=== PATIENT | female | born 1940 | race Caucasian/White ===

== ENCOUNTER 2020-06-24 19:15 | Emergency (ER) | payer MEDICARE, OTHER ==
[2020-06-24 19:57] LABS: #Basophils 0.1 10x3/uL (0.0-0.2); #Eosinphils 0.2 10x3/uL (0.0-0.5); #Monocytes 0.4 10x3/uL (0.0-1.1); #Neutrophils 8.7 10x3/uL (1.5-8.4); %Basophils 0.5 % (0.0-2.0); %Eosinophils 1.4 % (0.0-6.0); %Lymphocytes 13.6 % (18.0-47.0); %Monocytes 3.5 % (0.0-10.0); Hemoglobin 12.7 g/dL (12.0-15.5); Mean Corpuscular HGB CONC 31.5 g/dL (32.0-36.0); Mean Corpuscular Hemoglobin 33.6 pg (27.0-33.0); Mean Corpuscular Volume 106.6 fl (81.6-98.3); Mean Platelet Volume 9.7 fl (7.4-10.4); Platelet Count 162 10x3/uL (150-450); RBC Distribution Width 13.9 % (11.5-14.5); Red Blood Cell (RBC) Count 3.78 10x6/uL (3.90-5.03); White Blood Cell (WBC) Count 10.8 10x3/uL (3.5-10.5)
[2020-06-24] MEDS ORDERED: Fentanyl 100 MCG/2 ML VIAL ONE ×4 (20:00→23:35)
[2020-06-24 20:17] LABS: ALT (SGPT) 39 U/L (8-55); AST (SGOT) 57 U/L (5-34); Albumin 3.9 g/dL (3.4-4.8); Alkaline Phosphatase 118 U/L (40-110); Anion Gap 15 mmol/L (10-20); BUN (Urea Nitrogen) 13 mg/dL (9.8-20.1); Bilirubin, Total 0.7 mg/dL (0.2-1.2); CK (CPK) 140 U/L (29-168); Calc. Creatinine Clearance 0 mL/min (70-130); Calcium 8.2 mg/dL (7.8-10.44); Carbon Dioxide 21 mmol/L (23-31); Chloride 107 mmol/L (98-107); Globulin 2.4 g/dL (2.4-3.5); Glucose 246 mg/dL (83-110); Magnesium 2.6 mg/dL (1.6-2.6); Potassium 3.7 mmol/L (3.5-5.1); Protein, Total 6.3 g/dL (5.8-8.1); Sodium 139 mmol/L (136-145)
[2020-06-24 20:24] LABS: D-Dimer Test 5.89 mg/L FEU (0.19-0.50); PTT 26.1 sec (22.0-33.0); Prothrombin Time 10.8 sec (9.5-12.1)
[2020-06-24 20:34] LABS: SARS-CoV-2 NAA Rapid Test Not Detected (NotDetected)
[2020-06-24 20:34] LABS: Actual Bicarbonate (HCO3a) 21.2 mEq/L (22-28); Base Excess (BEa) -6.8 mEq/L (-2.0 to +3.0); CO2 Tension 53.2 mmHg (35.0-45.0); Calcium, Ionized (arterial) 1.17 mmol/L (1.12-1.30); Carboxyhemoglobin (COHb) 0.5 gm% (0.0-3.0); Hemoglobin (Hb) 13.3 g/dL (12.0-16.0); O2 Tension (PaO2), arterial 278.4 mmHg (> 70.0); Potassium - ABG Lab 3.6 mmol/L (3.70-5.30); Puncture Site RBA; pH, Arterial 7.22 (7.35-7.45)
[2020-06-24 20:35] LABS: CKMB 1.5 ng/mL (0-6.6)
[2020-06-24 20:52] LABS: Macrocytosis SLIGHT = 6-15 cells (100X) (0-5/hpf)
[2020-06-24 20:57] LABS: Platelet Morphology Comment Appears Adequate
[2020-06-24 21:24] LABS: Bilirubin Neg (Negative); Blood, Urine 25 (Negative); Clarity Clear (Clear); Glucose, Urine (Dipstick) Normal (Negative); Ketone, Urine Negative (Negative); Leukocyte Negative (Negative); Nitrite Negative (Negative); Protein, Urine (Dipstick) 100 mg/dl (Neg-Trace); Urobilinogen Normal mg/dL (Less than 2)
[2020-06-24 21:46] LABS: RBC/HPF 0-3 HPF (0-3); Squamous Epithelial 0-3 HPF (0-3); WBC/HPF None Seen HPF (0-3)
[2020-06-24 21:47] LABS: Bacteria/HPF None Seen HPF (None Seen)
[2020-06-24 23:15] LABS: Lactic Acid 2.1 mmol/L (0.5-2.2)
== END 2020-06-24 23:43 | disposition short-term general hospital (02) ==
LOC: MERGE 19:15 → CSHERS 19:15
DX: J44.1 Chronic obstructive pulmonary disease with (acute) exacerbation (principal); J96.90 Respiratory failure, unspecified, unspecified whether with hypoxia or hypercapnia; I25.2 Old myocardial infarction; E03.9 Hypothyroidism, unspecified; E78.5 Hyperlipidemia, unspecified
CPT/HCPCS: 0240U; 36415; 36600; 71045; 80053; 81003; 81015; 82550; 82553; 82805; 83605; 83735; 83880; 84484; 85025; 85379; 85610; 85730; 87040; 87086; 93005; 94002; 94640; 94760; J3010; J7620

== ENCOUNTER 2020-08-21 10:04 | Outpatient (CLI) | payer MEDICARE, OTHER | END 2020-08-21 10:05 | disposition home or self-care (01) | LOC: CSHCT 10:04 | PROVIDERS: ATTEND Anesthesiology Pain Medicine | DX: M51.16 Intervertebral disc disorders with radiculopathy, lumbar region (principal) | CPT/HCPCS: 72131 ==

== ENCOUNTER 2021-09-13 12:15 | Emergency (ER) | payer MEDICARE, OTHER ==
[2021-09-13 13:06] LABS: #Basophils 0.1 10x3/uL (0.0-0.2); #Eosinphils 0.3 10x3/uL (0.0-0.5); #Monocytes 0.7 10x3/uL (0.0-1.1); #Neutrophils 7.6 10x3/uL (1.5-8.4); %Basophils 0.5 % (0.0-2.0); %Eosinophils 3.6 % (0.0-6.0); %Lymphocytes 8.9 % (18.0-47.0); %Monocytes 7.1 % (0.0-10.0); %Neutrophils 79.5 % (40.0-75.0); Hemoglobin 12.6 g/dL (12.0-15.5); Mean Corpuscular HGB CONC 32.1 g/dL (32.0-36.0); Mean Corpuscular Hemoglobin 33.7 pg (27.0-33.0); Mean Corpuscular Volume 104.8 fl (81.6-98.3); Mean Platelet Volume 9.8 fl (7.4-10.4); Platelet Count 181 10x3/uL (150-450); RBC Distribution Width 14.2 % (11.5-14.5); Red Blood Cell (RBC) Count 3.74 10x6/uL (3.90-5.03); White Blood Cell (WBC) Count 9.5 10x3/uL (3.5-10.5)
[2021-09-13 13:08] LABS: ALT (SGPT) 8 U/L (8-55); AST (SGOT) 16 U/L (5-34); Albumin 3.9 g/dL (3.4-4.8); Alkaline Phosphatase 77 U/L (40-110); Anion Gap 16 mmol/L (10-20); BUN (Urea Nitrogen) 18 mg/dL (9.8-20.1); Bilirubin, Total 1.3 mg/dL (0.2-1.2); Calc. Creatinine Clearance 0 mL/min (70-130); Calcium 8.4 mg/dL (7.8-10.44); Carbon Dioxide 28 mmol/L (23-31); Chloride 102 mmol/L (98-107); Globulin 2.2 g/dL (2.4-3.5); Glucose 125 mg/dL (83-110); Potassium 3.3 mmol/L (3.5-5.1); Protein, Total 6.1 g/dL (5.8-8.1); Sodium 143 mmol/L (136-145)
[2021-09-13] MEDS ORDERED: Boostrix 0.5 ML (Tdap) VIAL ONE (13:22)
[2021-09-13] MEDS ORDERED: Lidocaine 1% PF 5 ML VIAL ONE ×2 (13:34→14:40)
[2021-09-13 13:48] LABS: Bilirubin Neg (Negative); Blood, Urine 10 (Negative); Glucose, Urine (Dipstick) Normal (Negative); Ketone, Urine Negative (Negative); Leukocyte 500 (Negative); Nitrite Negative (Negative); Protein, Urine (Dipstick) Negative (Neg-Trace); Urobilinogen Normal mg/dL (Less than 2)
[2021-09-13 13:50] LABS: Clarity Clear (Clear)
[2021-09-13 14:04] LABS: Bacteria/HPF Rare-Few HPF (None Seen); RBC/HPF 0-3 HPF (0-3); Squamous Epithelial 21-50 HPF (0-3)
[2021-09-13] MEDS ORDERED: Bacitracin 1 PK ONE (15:33)
[2021-09-13] MEDS ORDERED: Potassium Chloride 20 MEQ TAB ONE (15:53)
== END 2021-09-13 16:21 | disposition home or self-care (01) ==
LOC: CSHERS 12:15
DX: S63.287A Dislocation of proximal interphalangeal joint of left little finger, initial encounter (principal); S01.81XA Laceration without foreign body of other part of head, initial encounter; S40.212A Abrasion of left shoulder, initial encounter; I25.10 Atherosclerotic heart disease of native coronary artery without angina pectoris; I11.0 Hypertensive heart disease with heart failure; I50.9 Heart failure, unspecified; I48.91 Unspecified atrial fibrillation; W19.XXXA Unspecified fall, initial encounter
CPT/HCPCS: 12011; 26770; 70450; 72125; 80053; 81003; 81015; 84484; 85025; 90471; 90715; 93005

== ENCOUNTER 2022-12-09 10:29 | Inpatient (IN) | payer MEDICARE, OTHER ==
[2022-12-09 11:10] LABS: #Basophils 0.1 10x3/uL (0.0-0.2); #Monocytes 0.6 10x3/uL (0.0-1.1); #Neutrophils 9.7 10x3/uL (1.5-8.4); %Basophils 0.5 % (0.0-2.0); %Eosinophils 0.3 % (0.0-6.0); %Lymphocytes 4.2 % (18.0-47.0); %Monocytes 5.5 % (0.0-10.0); Hematocrit 36.3 % (34.9-44.5); Hemoglobin 11.3 g/dL (12.0-15.5); Mean Corpuscular HGB CONC 31.1 g/dL (32.0-36.0); Mean Corpuscular Hemoglobin 32.6 pg (27.0-33.0); Mean Corpuscular Volume 104.6 fl (81.6-98.3); Mean Platelet Volume 9.9 fl (7.4-10.4); Platelet Count 168 10x3/uL (150-450); RBC Distribution Width 16.3 % (11.5-14.5); Red Blood Cell (RBC) Count 3.47 10x6/uL (3.90-5.03); White Blood Cell (WBC) Count 10.9 10x3/uL (3.5-10.5)
[2022-12-09 11:16] LABS: INR-International Normal Ratio 1.2; PTT 26.7 sec (22.0-33.0); Prothrombin Time 12.4 sec (9.5-12.1)
[2022-12-09 11:21] LABS: ALT (SGPT) 14 U/L (8-55); AST (SGOT) 19 U/L (5-34); Albumin 3.6 g/dL (3.4-4.8); Alkaline Phosphatase 91 U/L (40-110); Anion Gap 15 mmol/L (10-20); BUN (Urea Nitrogen) 19 mg/dL (9.8-20.1); Bilirubin, Total 1.6 mg/dL (0.2-1.2); Calc. Creatinine Clearance 0 mL/min (70-130); Calcium 8.1 mg/dL (7.8-10.44); Carbon Dioxide 20 mmol/L (23-31); Chloride 111 mmol/L (98-107); Estimated GFR 79; Globulin 2.1 g/dL (2.4-3.5); Glucose 110 mg/dL (83-110); Potassium 3.8 mmol/L (3.5-5.1); Protein, Total 5.7 g/dL (5.8-8.1); Sodium 142 mmol/L (136-145)
[2022-12-09] MEDS ORDERED: CEFAZOLIN 2 GM VIAL ONE (11:34)
[2022-12-09] MEDS ORDERED: Iopamidol 370 76% 100 ML VIAL ONE (12:10)
[2022-12-09 13:32] LABS: Bilirubin Neg (Negative); Blood, Urine 250 (Negative); Clarity Slightly Cloudy (Clear); Glucose, Urine (Dipstick) Normal (Negative); Ketone, Urine Negative (Negative); Leukocyte 500 (Negative); Nitrite Negative (Negative); Protein, Urine (Dipstick) 30 mg/dl (Neg-Trace); Specific Gravity, Urine 1.015 (1.005-1.030)
[2022-12-09] MEDS ORDERED: Ondansetron PF 4 MG/2 ML Vial ONE (13:36)
[2022-12-09] MEDS ORDERED: Succinylcholine 200 MG/10 ml SYRINGE FS ONE (13:36)
[2022-12-09] MEDS ORDERED: fentaNYL 50 mcg/mL 1 mL Vial ONE (13:36)
[2022-12-09] MEDS ORDERED: PROPOFOL 20 ML ONE (13:36)
[2022-12-09] MEDS ORDERED: Rocuronium Bromide 10 MG/ML (10ML VIAL) ONE (13:36)
[2022-12-09 13:49] LABS: CAUTI Indications for Culture Alt mental st,lethar
[2022-12-09 13:51] LABS: Bacteria/HPF 2+ HPF (None Seen); Calcium Oxalate Crystals Rare HPF (None Seen); Mucous/LPF 1+ LPF (<2+)
[2022-12-09 13:53] LABS: Urine Culture Reflex Yes Yes
[2022-12-09 16:56] VITALS: BMI 25.7
[2022-12-09] MEDS ORDERED: Non-Formulary Medication 1 EACH (Evolocumab [Repatha Sureclick] 140 MG/ML Pen.Injctr) SC SCH (17:30)
[2022-12-09] MEDS ORDERED: BUPRENORPHINE 10 MCG TD SCH (17:30)
[2022-12-09] MEDS ORDERED: Furosemide 40 MG/4 ML VIAL SLOW IVP SCH (20:00)
[2022-12-09] MEDS: CEFAZOLIN 1 GM in Sodium Chloride 0.9% 100 ML IVPB SCH (20:30)
[2022-12-09] MEDS: Mirtazapine 15 MG TAB PO SCH (20:31)
[2022-12-09] MEDS: traMADol HCl 50 MG TAB PO PRN (20:31)
[2022-12-09] MEDS: Carvedilol 3.125 MG TAB PO SCH (20:32)
[2022-12-10] MEDS: CEFAZOLIN 1 GM in Sodium Chloride 0.9% 100 ML IVPB SCH ×2 (04:16→11:22)
[2022-12-10 04:58] LABS: Hematocrit 31.1 % (34.9-44.5); Hemoglobin 9.5 g/dL (12.0-15.5); Mean Corpuscular HGB CONC 30.5 g/dL (32.0-36.0); Mean Corpuscular Hemoglobin 32.2 pg (27.0-33.0); Mean Corpuscular Volume 105.4 fl (81.6-98.3); Mean Platelet Volume 9.6 fl (7.4-10.4); Platelet Count 154 10x3/uL (150-450); RBC Distribution Width 16.4 % (11.5-14.5); Red Blood Cell (RBC) Count 2.95 10x6/uL (3.90-5.03); White Blood Cell (WBC) Count 8.8 10x3/uL (3.5-10.5)
[2022-12-10 04:59] LABS: Anion Gap 11 mmol/L (10-20); BUN (Urea Nitrogen) 17 mg/dL (9.8-20.1); Calc. Creatinine Clearance 58 mL/min (70-130); Calcium 7.9 mg/dL (7.8-10.44); Carbon Dioxide 25 mmol/L (23-31); Chloride 111 mmol/L (98-107); Estimated GFR 68; Glucose 104 mg/dL (83-110); MDiff Complete? YES; Potassium 4.1 mmol/L (3.5-5.1); Sodium 143 mmol/L (136-145)
[2022-12-10] MEDS: Levothyroxine Sodium 88 MCG TAB PO SCH (05:57)
[2022-12-10 06:04] LABS: Eosinophils 1 % (0-10); Monocytes 3 % (0-10); Neutrophil 96 % (42-75)
[2022-12-10 06:08] LABS: Hypochromia SLIGHT = 6-15 cells (100X) (0-5/hpf); Macrocytosis SLIGHT = 6-15 cells (100X) (0-5/hpf); Ovalocytes SLIGHT = 2-5 cells (100X) (0-1/hpf); Polychromasia SLIGHT = 2-3 cells (100X) (0-2/hpf); Schistocytes SLIGHT = 2-5 cells (100X) (0-1/hpf)
[2022-12-10 06:09] LABS: Platelet Adequacy Comment Platelets Normal
[2022-12-10] MEDS: Amiodarone 200 MG TAB PO SCH (07:47)
[2022-12-10] MEDS: Spironolactone 25 MG TAB PO SCH (07:47)
[2022-12-10] MEDS: Aspirin 325 mg Enteric Coated Tablet PO SCH (07:47)
[2022-12-10] MEDS: traMADol HCl 50 MG TAB PO PRN (07:47)
[2022-12-10] MEDS: Oxybutynin ER 5 MG TAB PO SCH (07:48)
[2022-12-10] MEDS: Furosemide 40 MG/4 ML VIAL SLOW IVP SCH ×2 (09:33→21:25)
[2022-12-10] MEDS: Carvedilol 3.125 MG TAB PO SCH ×2 (09:33→21:25)
[2022-12-10] MEDS: Methocarbamol 500 MG TAB PO PRN (18:27)
[2022-12-10] MEDS: Mirtazapine 15 MG TAB PO SCH (21:18)
[2022-12-11 04:53] LABS: #Eosinphils 0.2 10x3/uL (0.0-0.5); #Monocytes 0.6 10x3/uL (0.0-1.1); #Neutrophils 5.8 10x3/uL (1.5-8.4); %Basophils 0.4 % (0.0-2.0); %Eosinophils 2.2 % (0.0-6.0); %Lymphocytes 8.3 % (18.0-47.0); %Monocytes 8.7 % (0.0-10.0); %Neutrophils 80.1 % (40.0-75.0); Hematocrit 28.7 % (34.9-44.5); Hemoglobin 8.9 g/dL (12.0-15.5); Mean Corpuscular Hemoglobin 32.4 pg (27.0-33.0); Mean Corpuscular Volume 104.4 fl (81.6-98.3); Mean Platelet Volume 10.1 fl (7.4-10.4); Platelet Count 142 10x3/uL (150-450); RBC Distribution Width 16.2 % (11.5-14.5); Red Blood Cell (RBC) Count 2.75 10x6/uL (3.90-5.03); White Blood Cell (WBC) Count 7.3 10x3/uL (3.5-10.5)
[2022-12-11 05:00] LABS: Anion Gap 13 mmol/L (10-20); BUN (Urea Nitrogen) 15 mg/dL (9.8-20.1); Calc. Creatinine Clearance 68 mL/min (70-130); Calcium 7.8 mg/dL (7.8-10.44); Carbon Dioxide 26 mmol/L (23-31); Chloride 106 mmol/L (98-107); Estimated GFR 83; Glucose 87 mg/dL (83-110); Potassium 3.5 mmol/L (3.5-5.1); Sodium 141 mmol/L (136-145)
[2022-12-11] MEDS: Levothyroxine Sodium 88 MCG TAB PO SCH (06:41)
[2022-12-11] MEDS: Furosemide 40 MG/4 ML VIAL SLOW IVP SCH ×2 (08:29→21:36)
[2022-12-11] MEDS: Oxybutynin ER 5 MG TAB PO SCH (08:29)
[2022-12-11] MEDS: Carvedilol 3.125 MG TAB PO SCH ×2 (08:30→21:34)
[2022-12-11] MEDS: Aspirin 325 mg Enteric Coated Tablet PO SCH (08:30)
[2022-12-11] MEDS: Spironolactone 25 MG TAB PO SCH (08:30)
[2022-12-11] MEDS: Amiodarone 200 MG TAB PO SCH (08:30)
[2022-12-11] MEDS: traMADol HCl 50 MG TAB PO PRN ×2 (11:56→21:34)
[2022-12-11] MEDS: Methocarbamol 500 MG TAB PO PRN (16:34)
[2022-12-12] MEDS: Levothyroxine Sodium 88 MCG TAB PO SCH (06:05)
[2022-12-12] MEDS: Furosemide 40 MG/4 ML VIAL SLOW IVP SCH (09:14)
[2022-12-12] MEDS: Oxybutynin ER 5 MG TAB PO SCH (09:14)
[2022-12-12] MEDS: Carvedilol 3.125 MG TAB PO SCH ×3 (09:15→23:20)
[2022-12-12] MEDS: Aspirin 325 mg Enteric Coated Tablet PO SCH (09:15)
[2022-12-12] MEDS: Amiodarone 200 MG TAB PO SCH (09:15)
[2022-12-12] MEDS: Spironolactone 25 MG TAB PO SCH (09:15)
[2022-12-12] MEDS: traMADol HCl 50 MG TAB PO PRN ×2 (10:57→22:58)
[2022-12-12] MEDS: Methocarbamol 500 MG TAB PO PRN (15:43)
[2022-12-12] MEDS: Sacubitril 24MG/Valsartan 26 MG TAB PO SCH ×2 (22:58→23:17)
[2022-12-13] MEDS: Levothyroxine Sodium 88 MCG TAB PO SCH (06:00)
[2022-12-13] MEDS ORDERED: LevoFLOXacin 500 MG TAB PO SCH (06:00)
[2022-12-13] MEDS: Oxybutynin ER 5 MG TAB PO SCH (08:51)
[2022-12-13] MEDS: Amiodarone 200 MG TAB PO SCH (08:51)
[2022-12-13] MEDS: Aspirin 325 mg Enteric Coated Tablet PO SCH (08:52)
[2022-12-13] MEDS: Carvedilol 3.125 MG TAB PO SCH (08:52)
[2022-12-13] MEDS: Methocarbamol 500 MG TAB PO PRN (11:34)
[2022-12-13 12:48] VITALS: BP 100/58; TEMP 98.4
[2022-12-14] MEDS ORDERED: LevoFLOXacin 750 MG TAB PO SCH (06:00)
== END 2022-12-13 13:46 | DRG 604 ==
LOC: CSHERS 10:29 → CSHTELE 16:45
PROVIDERS: ADMIT Orthopaedic Surgery; ATTEND Orthopaedic Surgery
PROC: 0JDP3ZZ Extraction of Left Lower Leg Subcutaneous Tissue and Fascia, Percutaneous Approach (ICD-10-PCS; principal; 2022-12-09)
DX: S81.812A Laceration without foreign body, left lower leg, initial encounter (principal); I50.23 Acute on chronic systolic (congestive) heart failure; K57.92 Diverticulitis of intestine, part unspecified, without perforation or abscess without bleeding; S81.802A Unspecified open wound, left lower leg, initial encounter; I25.10 Atherosclerotic heart disease of native coronary artery without angina pectoris; I11.0 Hypertensive heart disease with heart failure; I48.91 Unspecified atrial fibrillation; W18.30XA Fall on same level, unspecified, initial encounter; G89.29 Other chronic pain; M54.9 Dorsalgia, unspecified; Z96.653 Presence of artificial knee joint, bilateral; Z95.1 Presence of aortocoronary bypass graft; Z88.8 Allergy status to other drugs, medicaments and biological substances; Z79.899 Other long term (current) drug therapy; Z79.890 Hormone replacement therapy
CPT/HCPCS: 36415; 71045; 71275; 80048; 80053; 81001; 83605; 83880; 85025; 85610; 85730; 86140; 86850; 86900; 86901; 87077; 87086; 87186; 93005; 93306; 94760; 96365; 97139; J0690; J1650; J1940; J2405; J2704; J3010; J3490; Q9967

== ENCOUNTER 2023-04-18 09:04 | Inpatient (IN) | payer MEDICARE, OTHER ==
[2023-04-18 10:21] LABS: #Monocytes 1.1 10x3/uL (0.0-1.1); #Neutrophils 14.6 10x3/uL (1.5-8.4); %Basophils 0.2 % (0.0-2.0); %Eosinophils 0.1 % (0.0-6.0); %Lymphocytes 2.7 % (18.0-47.0); %Monocytes 6.7 % (0.0-10.0); %Neutrophils 89.3 % (40.0-75.0); Hematocrit 34.6 % (34.9-44.5); Hemoglobin 10.8 g/dL (12.0-15.5); Mean Corpuscular HGB CONC 31.2 g/dL (32.0-36.0); Mean Corpuscular Hemoglobin 30.3 pg (27.0-33.0); Mean Corpuscular Volume 97.2 fl (81.6-98.3); Mean Platelet Volume 10.6 fl (7.4-10.4); Platelet Count 235 10x3/uL (150-450); RBC Distribution Width 16.7 % (11.5-14.5); Red Blood Cell (RBC) Count 3.56 10x6/uL (3.90-5.03); White Blood Cell (WBC) Count 16.3 10x3/uL (3.5-10.5)
[2023-04-18 11:06] LABS: Platelet Adequacy Comment Appears Adequate
[2023-04-18 12:52] LABS: ALT (SGPT) 37 U/L (8-55); AST (SGOT) 52 U/L (5-34); Albumin 3.7 g/dL (3.4-4.8); Alkaline Phosphatase 75 U/L (40-110); Anion Gap 20 mmol/L (10-20); BUN (Urea Nitrogen) 28 mg/dL (9.8-20.1); Bilirubin, Total 2.5 mg/dL (0.2-1.2); CK (CPK) 886 U/L (29-168); Calc. Creatinine Clearance 0 mL/min (70-130); Calcium 8.6 mg/dL (7.8-10.44); Carbon Dioxide 19 mmol/L (23-31); Chloride 104 mmol/L (98-107); Estimated GFR 71; Globulin 2.2 g/dL (2.4-3.5); Glucose 141 mg/dL (83-110); Potassium 4.3 mmol/L (3.5-5.1); Protein, Total 5.9 g/dL (5.8-8.1); Sodium 139 mmol/L (136-145)
[2023-04-18 13:22] LABS: Lactic Acid 2.5 mmol/L (0.5-2.2)
[2023-04-18] MEDS ORDERED: Ondansetron ODT 4 MG TAB PO PRN (16:54)
[2023-04-19 02:18] VITALS: BMI 23.0
[2023-04-19 04:22] LABS: #Monocytes 1.5 10x3/uL (0.0-1.1); #Neutrophils 14.5 10x3/uL (1.5-8.4); %Basophils 0.1 % (0.0-2.0); %Lymphocytes 2.8 % (18.0-47.0); %Monocytes 9.3 % (0.0-10.0); Hematocrit 33.4 % (34.9-44.5); Hemoglobin 10.2 g/dL (12.0-15.5); Mean Corpuscular HGB CONC 30.5 g/dL (32.0-36.0); Mean Corpuscular Hemoglobin 30.4 pg (27.0-33.0); Mean Corpuscular Volume 99.4 fl (81.6-98.3); Mean Platelet Volume 10.7 fl (7.4-10.4); Platelet Count 202 10x3/uL (150-450); RBC Distribution Width 16.8 % (11.5-14.5); Red Blood Cell (RBC) Count 3.36 10x6/uL (3.90-5.03); White Blood Cell (WBC) Count 16.6 10x3/uL (3.5-10.5)
[2023-04-19 04:39] LABS: Anion Gap 15 mmol/L (10-20); BUN (Urea Nitrogen) 26 mg/dL (9.8-20.1); Calc. Creatinine Clearance 61 mL/min (70-130); Carbon Dioxide 18 mmol/L (23-31); Chloride 109 mmol/L (98-107); Estimated GFR 83; Glucose 75 mg/dL (83-110); Sodium 138 mmol/L (136-145)
[2023-04-19] MEDS: Sodium Chloride 0.9% 1,000 ML IV SCH ×5 (04:55→22:53)
[2023-04-19] MEDS: Levothyroxine Sodium 88 MCG TAB PO SCH (06:59)
[2023-04-19] MEDS: Apixaban 2.5 MG TAB PO SCH ×2 (08:27→22:43)
[2023-04-19] MEDS: Amiodarone 200 MG TAB PO SCH (08:27)
[2023-04-19] MEDS ORDERED: FLU VACC QS2023(65UP)/MF59C/PF 60 MCG/0.5 ML SYRINGE IM ONE (09:00)
[2023-04-19] MEDS: Acetaminophen 325 MG TAB PO PRN ×2 (14:21→22:43)
[2023-04-19] MEDS: HYDROcodone/Acetaminophen 5/325 mg Tablet PO PRN (17:10)
[2023-04-19 19:22] LABS: Troponin I 0.065 ng/mL (< 0.028)
[2023-04-19] MEDS: Azithromycin 500 MG in Sodium Chloride 0.9% 250 ML 250 ML IVPB SCH (22:42)
[2023-04-19] MEDS: Methocarbamol 500 MG TAB PO PRN (22:44)
[2023-04-19] MEDS: Carvedilol 3.125 MG TAB PO SCH (22:44)
[2023-04-19] MEDS: cefTRIAXone\\ROCEPHIN 1 GM in Sodium Chloride 0.9% 100 ML IVPB SCH (22:48)
[2023-04-20] MEDS ORDERED: Hydrocodone-Acetamin 15 ML UDCUP PO SCH (01:15)
[2023-04-20 05:00] LABS: #Neutrophils 12.4 10x3/uL (1.5-8.4); %Basophils 0.1 % (0.0-2.0); %Lymphocytes 1.6 % (18.0-47.0); %Monocytes 7.3 % (0.0-10.0); %Neutrophils 90.2 % (40.0-75.0); Hematocrit 34.3 % (34.9-44.5); Hemoglobin 10.3 g/dL (12.0-15.5); Mean Corpuscular Hemoglobin 29.9 pg (27.0-33.0); Mean Corpuscular Volume 99.7 fl (81.6-98.3); Mean Platelet Volume 10.8 fl (7.4-10.4); Platelet Count 192 10x3/uL (150-450); RBC Distribution Width 16.7 % (11.5-14.5); Red Blood Cell (RBC) Count 3.44 10x6/uL (3.90-5.03); White Blood Cell (WBC) Count 13.7 10x3/uL (3.5-10.5)
[2023-04-20 05:15] LABS: Anion Gap 15 mmol/L (10-20); BUN (Urea Nitrogen) 23 mg/dL (9.8-20.1); Calc. Creatinine Clearance 60 mL/min (70-130); Calcium 7.7 mg/dL (7.8-10.44); Carbon Dioxide 17 mmol/L (23-31); Chloride 110 mmol/L (98-107); Estimated GFR 82; Glucose 116 mg/dL (83-110); Potassium 4.3 mmol/L (3.5-5.1); Sodium 138 mmol/L (136-145)
[2023-04-20] MEDS: Levothyroxine Sodium 88 MCG TAB PO SCH (06:33)
[2023-04-20] MEDS: HYDROcodone/Acetaminophen 5/325 mg Tablet PO PRN (08:26)
[2023-04-20] MEDS: Oxybutynin ER 5 MG TAB PO SCH (08:27)
[2023-04-20] MEDS: Amiodarone 200 MG TAB PO SCH (08:28)
[2023-04-20] MEDS: Carvedilol 3.125 MG TAB PO SCH ×2 (08:28→21:36)
[2023-04-20] MEDS: Apixaban 2.5 MG TAB PO SCH ×2 (08:29→21:36)
[2023-04-20] MEDS ORDERED: Furosemide 40 MG (4 mL) VIAL SLOW IVP SCH (10:30)
[2023-04-20] MEDS ORDERED: Morphine 4 MG/ML VIAL SLOW IVP SCH (16:30)
[2023-04-20] MEDS: cefTRIAXone\\ROCEPHIN 1 GM in Sodium Chloride 0.9% 100 ML IVPB SCH (21:36)
[2023-04-20] MEDS: Furosemide 40 MG (4 mL) VIAL SLOW IVP SCH (21:36)
[2023-04-20] MEDS: Azithromycin 500 MG in Sodium Chloride 0.9% 250 ML 250 ML IVPB SCH (21:37)
[2023-04-21 05:36] LABS: #Monocytes 0.9 10x3/uL (0.0-1.1); #Neutrophils 12.9 10x3/uL (1.5-8.4); %Basophils 0.1 % (0.0-2.0); %Eosinophils 0.1 % (0.0-6.0); %Lymphocytes 1.8 % (18.0-47.0); %Monocytes 6.6 % (0.0-10.0); %Neutrophils 90.8 % (40.0-75.0); Hematocrit 34.7 % (34.9-44.5); Hemoglobin 10.4 g/dL (12.0-15.5); Mean Corpuscular Hemoglobin 29.7 pg (27.0-33.0); Mean Corpuscular Volume 99.1 fl (81.6-98.3); Mean Platelet Volume 10.6 fl (7.4-10.4); Platelet Count 176 10x3/uL (150-450); RBC Distribution Width 16.5 % (11.5-14.5); White Blood Cell (WBC) Count 14.2 10x3/uL (3.5-10.5)
[2023-04-21 05:59] LABS: Anion Gap 14 mmol/L (10-20); BUN (Urea Nitrogen) 19 mg/dL (9.8-20.1); Calc. Creatinine Clearance 71 mL/min (70-130); Carbon Dioxide 21 mmol/L (23-31); Chloride 107 mmol/L (98-107); Estimated GFR 90; Glucose 83 mg/dL (83-110); Potassium 3.6 mmol/L (3.5-5.1); Sodium 138 mmol/L (136-145)
[2023-04-21] MEDS: Levothyroxine Sodium 88 MCG TAB PO SCH (06:16)
[2023-04-21] MEDS: Furosemide 40 MG (4 mL) VIAL SLOW IVP SCH ×2 (08:44→22:23)
[2023-04-21] MEDS: Apixaban 2.5 MG TAB PO SCH ×2 (08:44→22:23)
[2023-04-21] MEDS: Carvedilol 3.125 MG TAB PO SCH ×2 (08:44→22:23)
[2023-04-21] MEDS: Amiodarone 200 MG TAB PO SCH (08:44)
[2023-04-21] MEDS: Oxybutynin ER 5 MG TAB PO SCH (08:45)
[2023-04-21] MEDS: HYDROcodone/Acetaminophen 5/325 mg Tablet PO PRN ×2 (08:58→20:56)
[2023-04-21] MEDS: Methocarbamol 500 MG TAB PO PRN (15:46)
[2023-04-21] MEDS: Acetaminophen 325 MG TAB PO PRN (15:46)
[2023-04-21] MEDS: Azithromycin 500 MG in Sodium Chloride 0.9% 250 ML 250 ML IVPB SCH (22:22)
[2023-04-21] MEDS: cefTRIAXone\\ROCEPHIN 1 GM in Sodium Chloride 0.9% 100 ML IVPB SCH (22:23)
[2023-04-22] MEDS: HYDROcodone/Acetaminophen 5/325 mg Tablet PO PRN ×2 (03:02→15:57)
[2023-04-22] MEDS: Levothyroxine Sodium 88 MCG TAB PO SCH (05:55)
[2023-04-22 06:12] LABS: #Eosinphils 0.2 10x3/uL (0.0-0.5); #Neutrophils 11.2 10x3/uL (1.5-8.4); %Basophils 0.1 % (0.0-2.0); %Eosinophils 1.3 % (0.0-6.0); %Lymphocytes 3.1 % (18.0-47.0); %Monocytes 7.8 % (0.0-10.0); %Neutrophils 87.4 % (40.0-75.0); Hematocrit 35.2 % (34.9-44.5); Hemoglobin 11.2 g/dL (12.0-15.5); Mean Corpuscular HGB CONC 31.8 g/dL (32.0-36.0); Mean Corpuscular Hemoglobin 30.4 pg (27.0-33.0); Mean Corpuscular Volume 95.4 fl (81.6-98.3); Mean Platelet Volume 10.6 fl (7.4-10.4); Platelet Count 156 10x3/uL (150-450); RBC Distribution Width 16.1 % (11.5-14.5); Red Blood Cell (RBC) Count 3.69 10x6/uL (3.90-5.03); White Blood Cell (WBC) Count 12.8 10x3/uL (3.5-10.5)
[2023-04-22 06:18] LABS: Anion Gap 11 mmol/L (10-20); BUN (Urea Nitrogen) 15 mg/dL (9.8-20.1); Calc. Creatinine Clearance 75 mL/min (70-130); Calcium 7.9 mg/dL (7.8-10.44); Carbon Dioxide 33 mmol/L (23-31); Chloride 98 mmol/L (98-107); Estimated GFR 91; Glucose 113 mg/dL (83-110); Potassium 2.9 mmol/L (3.5-5.1); Sodium 139 mmol/L (136-145)
[2023-04-22] MEDS: Furosemide 40 MG (4 mL) VIAL SLOW IVP SCH ×2 (09:00→20:21)
[2023-04-22] MEDS: Amiodarone 200 MG TAB PO SCH ×2 (09:00→09:12)
[2023-04-22] MEDS: Acetaminophen 325 MG TAB PO PRN ×3 (09:00→20:21)
[2023-04-22] MEDS: Apixaban 2.5 MG TAB PO SCH ×3 (09:00→20:21)
[2023-04-22] MEDS: Carvedilol 3.125 MG TAB PO SCH ×3 (09:01→20:21)
[2023-04-22] MEDS: Oxybutynin ER 5 MG TAB PO SCH ×2 (09:01→09:12)
[2023-04-22] MEDS: Potassium Chloride 20 MEQ in Premix 1 BAG IVPB SCH ×4 (10:09→16:41)
[2023-04-22] MEDS: Methocarbamol 500 MG TAB PO PRN (11:49)
[2023-04-22] MEDS: Azithromycin 500 MG in Sodium Chloride 0.9% 250 ML 250 ML IVPB SCH (20:20)
[2023-04-22] MEDS: cefTRIAXone\\ROCEPHIN 1 GM in Sodium Chloride 0.9% 100 ML IVPB SCH (20:20)
[2023-04-23] MEDS: HYDROcodone/Acetaminophen 5/325 mg Tablet PO PRN ×4 (02:18→22:02)
[2023-04-23] MEDS: Levothyroxine Sodium 88 MCG TAB PO SCH (05:23)
[2023-04-23 06:16] LABS: #Eosinphils 0.3 10x3/uL (0.0-0.5); #Neutrophils 9.5 10x3/uL (1.5-8.4); %Basophils 0.1 % (0.0-2.0); %Eosinophils 2.3 % (0.0-6.0); %Lymphocytes 3.7 % (18.0-47.0); %Monocytes 9.1 % (0.0-10.0); %Neutrophils 84.4 % (40.0-75.0); Hemoglobin 10.8 g/dL (12.0-15.5); Mean Corpuscular HGB CONC 30.9 g/dL (32.0-36.0); Mean Corpuscular Hemoglobin 29.6 pg (27.0-33.0); Mean Corpuscular Volume 95.9 fl (81.6-98.3); Mean Platelet Volume 10.4 fl (7.4-10.4); Platelet Count 157 10x3/uL (150-450); RBC Distribution Width 16.2 % (11.5-14.5); Red Blood Cell (RBC) Count 3.65 10x6/uL (3.90-5.03); White Blood Cell (WBC) Count 11.2 10x3/uL (3.5-10.5)
[2023-04-23 06:18] LABS: Anion Gap 10 mmol/L (10-20); BUN (Urea Nitrogen) 15 mg/dL (9.8-20.1); Calc. Creatinine Clearance 79 mL/min (70-130); Calcium 8.1 mg/dL (7.8-10.44); Carbon Dioxide 37 mmol/L (23-31); Chloride 96 mmol/L (98-107); Estimated GFR 92; Glucose 118 mg/dL (83-110); Potassium 3.8 mmol/L (3.5-5.1); Sodium 139 mmol/L (136-145)
[2023-04-23] MEDS: Oxybutynin ER 5 MG TAB PO SCH (09:39)
[2023-04-23] MEDS: Amiodarone 200 MG TAB PO SCH (09:40)
[2023-04-23] MEDS: Carvedilol 3.125 MG TAB PO SCH ×2 (09:40→20:58)
[2023-04-23] MEDS: Apixaban 2.5 MG TAB PO SCH ×2 (09:40→20:58)
[2023-04-23] MEDS: Furosemide 40 MG (4 mL) VIAL SLOW IVP SCH ×3 (11:36→20:57)
[2023-04-23 19:58] LABS: Bilirubin Neg (Negative); Blood, Urine Negative (Negative); Clarity Clear (Clear); Glucose, Urine (Dipstick) Normal (Negative); Ketone, Urine Negative (Negative); Leukocyte 25 (Negative); Nitrite Negative (Negative); Protein, Urine (Dipstick) Negative (Neg-Trace); Urobilinogen Normal mg/dL (Less than 2)
[2023-04-23 20:12] LABS: Bacteria/HPF None Seen HPF (None Seen); CAUTI Indications for Culture Immunosuppressed; RBC/HPF None Seen HPF (0-3); Squamous Epithelial 0-3 HPF (0-3)
[2023-04-23 20:13] LABS: Urine Culture Reflex Yes Yes
[2023-04-23] MEDS: Azithromycin 500 MG in Sodium Chloride 0.9% 250 ML 250 ML IVPB SCH (20:57)
[2023-04-23] MEDS: cefTRIAXone\\ROCEPHIN 1 GM in Sodium Chloride 0.9% 100 ML IVPB SCH (20:57)
[2023-04-24] MEDS: HYDROcodone/Acetaminophen 5/325 mg Tablet PO PRN ×2 (05:12→17:33)
[2023-04-24] MEDS: Levothyroxine Sodium 88 MCG TAB PO SCH (05:13)
[2023-04-24 05:34] LABS: #Eosinphils 0.1 10x3/uL (0.0-0.5); #Monocytes 1.1 10x3/uL (0.0-1.1); #Neutrophils 9.4 10x3/uL (1.5-8.4); %Basophils 0.2 % (0.0-2.0); %Eosinophils 0.7 % (0.0-6.0); %Lymphocytes 4.4 % (18.0-47.0); %Monocytes 9.7 % (0.0-10.0); %Neutrophils 84.6 % (40.0-75.0); Hematocrit 38.6 % (34.9-44.5); Hemoglobin 12.5 g/dL (12.0-15.5); Mean Corpuscular HGB CONC 32.4 g/dL (32.0-36.0); Mean Corpuscular Hemoglobin 30.9 pg (27.0-33.0); Mean Corpuscular Volume 95.3 fl (81.6-98.3); Mean Platelet Volume 10.9 fl (7.4-10.4); Platelet Count 157 10x3/uL (150-450); RBC Distribution Width 15.9 % (11.5-14.5); Red Blood Cell (RBC) Count 4.05 10x6/uL (3.90-5.03); White Blood Cell (WBC) Count 11.2 10x3/uL (3.5-10.5)
[2023-04-24 05:51] LABS: BUN (Urea Nitrogen) 19 mg/dL (9.8-20.1); Calc. Creatinine Clearance 77 mL/min (70-130); Calcium 8.7 mg/dL (7.8-10.44); Estimated GFR 91; Glucose 133 mg/dL (83-110)
[2023-04-24 06:00] LABS: Anion Gap 18 mmol/L (10-20); Carbon Dioxide 38 mmol/L (23-31); Chloride 86 mmol/L (98-107); Potassium 3.5 mmol/L (3.5-5.1); Sodium 138 mmol/L (136-145)
[2023-04-24] MEDS: Oxybutynin ER 5 MG TAB PO SCH (09:21)
[2023-04-24] MEDS: Apixaban 2.5 MG TAB PO SCH ×2 (09:21→20:31)
[2023-04-24] MEDS: Methocarbamol 500 MG TAB PO PRN (09:22)
[2023-04-24] MEDS: Amiodarone 200 MG TAB PO SCH (09:22)
[2023-04-24] MEDS: Carvedilol 3.125 MG TAB PO SCH ×2 (09:22→20:31)
[2023-04-24] MEDS: Furosemide 40 MG (4 mL) VIAL SLOW IVP SCH ×3 (09:23→20:31)
[2023-04-24] MEDS: cefTRIAXone\\ROCEPHIN 1 GM in Sodium Chloride 0.9% 100 ML IVPB SCH (20:30)
[2023-04-24] MEDS: Azithromycin 500 MG in Sodium Chloride 0.9% 250 ML 250 ML IVPB SCH (22:56)
[2023-04-25] MEDS: Acetaminophen 325 MG TAB PO PRN (00:21)
[2023-04-25] MEDS: Levothyroxine Sodium 88 MCG TAB PO SCH (05:42)
[2023-04-25] MEDS: Oxybutynin ER 5 MG TAB PO SCH (09:34)
[2023-04-25] MEDS: Furosemide 40 MG (4 mL) VIAL SLOW IVP SCH (09:34)
[2023-04-25] MEDS: Carvedilol 3.125 MG TAB PO SCH ×2 (09:35→22:00)
[2023-04-25] MEDS: HYDROcodone/Acetaminophen 5/325 mg Tablet PO PRN ×3 (09:35→22:00)
[2023-04-25] MEDS: Apixaban 2.5 MG TAB PO SCH ×2 (09:36→22:00)
[2023-04-25] MEDS: Amiodarone 200 MG TAB PO SCH (09:36)
[2023-04-25] MEDS ORDERED: Sodium Chloride 0.9% 500 ML IV SCH (16:00)
[2023-04-25] MEDS: cefTRIAXone\\ROCEPHIN 1 GM in Sodium Chloride 0.9% 100 ML IVPB SCH (22:02)
[2023-04-25] MEDS: Azithromycin 500 MG in Sodium Chloride 0.9% 250 ML 250 ML IVPB SCH (23:12)
[2023-04-26] MEDS: Levothyroxine Sodium 88 MCG TAB PO SCH (05:55)
[2023-04-26] MEDS: HYDROcodone/Acetaminophen 5/325 mg Tablet PO PRN ×3 (05:55→15:54)
[2023-04-26] MEDS: Carvedilol 3.125 MG TAB PO SCH (09:52)
[2023-04-26] MEDS: Amiodarone 200 MG TAB PO SCH (09:55)
[2023-04-26] MEDS: Apixaban 2.5 MG TAB PO SCH (09:55)
[2023-04-26] MEDS: Oxybutynin ER 5 MG TAB PO SCH (09:56)
[2023-04-26] MEDS: Furosemide 40 MG TAB PO SCH ×2 (09:56→15:53)
[2023-04-26 18:22] VITALS: BP 110/59; TEMP 97.8
== END 2023-04-26 18:22 | disposition hospice, home (50) | DRG 564 ==
LOC: CSHERS 09:04 → CSHERHOLD 13:40 → CSHTELE 18:54
PROVIDERS: ADMIT Internal Medicine; ATTEND Family Medicine
DX: T79.6XXA Traumatic ischemia of muscle, initial encounter (principal); G93.41 Metabolic encephalopathy; J96.01 Acute respiratory failure with hypoxia; J18.9 Pneumonia, unspecified organism; I50.22 Chronic systolic (congestive) heart failure; W18.30XA Fall on same level, unspecified, initial encounter; Z66 Do not resuscitate; E86.0 Dehydration; Z88.8 Allergy status to other drugs, medicaments and biological substances; I11.0 Hypertensive heart disease with heart failure; I25.10 Atherosclerotic heart disease of native coronary artery without angina pectoris; I48.91 Unspecified atrial fibrillation; Z79.82 Long term (current) use of aspirin; Z79.899 Other long term (current) drug therapy; Z79.01 Long term (current) use of anticoagulants
CPT/HCPCS: 36415; 36416; 70450; 71045; 71250; 72170; 73521; 74177; 80048; 80053; 81001; 82550; 83605; 84145; 84443; 84484; 85025; 87086; 93005; 93010; 93306; 94760; 94762; 97139; G0390; J0456; J0696; J1940; J2270; J3480; J3490; J7030; J7050